=== PATIENT | male | born 2005 | race Caucasian/White ===

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

== ENCOUNTER 2024-11-25 01:12 | Emergency (ER) | payer OTHER ==
[~2024-11-25] VITALS: Ht 175.3 cm; Wt 111.1 kg
[~2024-11-25 01:12] MED LIST: CRUTCH2 XX; TRAM50 PO
[2024-11-25 03:47] VITALS: BP 140/86
== END 2024-11-25 03:47 | disposition left against medical advice (07) ==
LOC: ER 01:12
DX: M54.2 Cervicalgia (principal); M54.9 Dorsalgia, unspecified; Z53.21 Procedure and treatment not carried out due to patient leaving prior to being seen by health care provider